=== PATIENT | female | born 1965 | race Caucasian/White ===

== ENCOUNTER 2020-01-17 21:39 | Emergency (ER) | payer OTHER ==
[~2020-01-17] VITALS: Ht 160 cm; Wt 97.5 kg
[2020-01-17 22:59] LABS: BASOPHILS 0.2 % (0.0-2.0); EOSINOPHILS 2.1 % (0.0-3.0); HEMOGLOBIN 15.6 gm/dL (12.0-15.0); LYMPHOCYTES 22.4 % (24.0-44.0); MCH 33.5 pg (26.0-34.0); MCV 98.4 fL (80.0-100.0); PLATELET COUNT 263 thou/uL (150-400); POLYS 68.3 % (36.0-66.0); RBC 4.68 mil/uL (4.20-5.00); RDW 12.4 % (10.5-14.5); WBC 8.8 thou/uL (4.0-11.0)
[2020-01-17 23:05] LABS: ANION GAP 12 mmol/L (7-16); BUN 8 mg/dL (7-18); CALCIUM 8.7 mg/dL (8.5-10.1); CHLORIDE 98 mmol/L (98-107); CO2 29 mmol/L (21-32); CREATININE 0.8 mg/dL (0.6-1.0); GLUCOSE 145 mg/dL (74-106); POTASSIUM 3.3 mmol/L (3.5-5.1); SODIUM 139 mmol/L (136-145)
[2020-01-17 23:13] LABS: TROPONIN-I <0.06 ng/mL (<0.06)
[2020-01-18 00:26] VITALS: BP 154/71
--- NOTE | 2020-01-18 08:00 | EKG ---
[facility] [place] [address] ELECTROCARDIOGRAM REPORT Name: LUIZA LORD Room #: DEP 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
== END 2020-01-18 00:27 | disposition home or self-care (01) ==
LOC: ER 21:39
PROVIDERS: Emergency Medicine
DX: R06.02 Shortness of breath (principal); R05 Cough; Z88.0 Allergy status to penicillin; Z88.2 Allergy status to sulfonamides

== ENCOUNTER → 2021-02-06 | Outpatient (CLI) | payer OTHER | LOC: LAB 09:18 | PROVIDERS: ATTEND Nurse Practitioner | DX: R05 Cough (principal); J02.9 Acute pharyngitis, unspecified; Z20.822 Contact with and (suspected) exposure to COVID-19 ==

== ENCOUNTER 2021-02-14 17:14 | Emergency (ER) | payer OTHER ==
[~2021-02-14] VITALS: Ht 162.6 cm; Wt 90.7 kg
[2021-02-14 17:24] VITALS: BP 145/70
[2021-02-14] MEDS ORDERED: NORCO5 PO ×2 (18:12→18:23)
== END 2021-02-14 18:14 | disposition home or self-care (01) ==
LOC: ER 17:14
DX: S83.8X1A Sprain of other specified parts of right knee, initial encounter (principal); Z88.0 Allergy status to penicillin; Z88.2 Allergy status to sulfonamides; X50.1XXA Overexertion from prolonged static or awkward postures, initial encounter; Y93.01 Activity, walking, marching and hiking; Y92.89 Other specified places as the place of occurrence of the external cause; Y99.9 Unspecified external cause status

== ENCOUNTER → 2021-02-25 | Outpatient (CLI) | payer OTHER ==
[~2021-02-25] MED LIST: NORCO5 PO
== END ==
LOC: MRI 02-24 10:39
PROVIDERS: ATTEND Nurse Practitioner
DX: S82.034A Nondisplaced transverse fracture of right patella, initial encounter for closed fracture (principal); M25.461 Effusion, right knee; R60.0 Localized edema; M22.8X1 Other disorders of patella, right knee; Z88.0 Allergy status to penicillin; Z88.8 Allergy status to other drugs, medicaments and biological substances; X58.XXXA Exposure to other specified factors, initial encounter; Y93.89 Activity, other specified; Y92.89 Other specified places as the place of occurrence of the external cause; Y99.8 Other external cause status